=== PATIENT | female | born 1950 | race Caucasian/White ===

== ENCOUNTER → 2016-09-05 | Outpatient (CLI) | payer MEDICARE, BC | LOC: MC.RAD 10:44 | DX: Z12.31 Encounter for screening mammogram for malignant neoplasm of breast (principal) ==

== ENCOUNTER → 2017-09-13 | Outpatient (CLI) | payer MEDICARE, BC | LOC: MC.RAD 07:20 | DX: Z12.31 Encounter for screening mammogram for malignant neoplasm of breast (principal) ==

== ENCOUNTER → 2018-09-24 | Outpatient (CLI) | payer MEDICARE, BC | LOC: MC.RAD 11:15 | DX: Z12.31 Encounter for screening mammogram for malignant neoplasm of breast (principal) ==

== ENCOUNTER → 2020-09-29 | Outpatient (CLI) | payer MEDICARE, BC | LOC: MC.RAD 10:52 | DX: Z12.31 Encounter for screening mammogram for malignant neoplasm of breast (principal) ==

== ENCOUNTER 2021-09-13 08:36 | Day surgery (SDC) | payer MEDICARE, BC ==
[2021-09-13] VITALS (11 sets, daily range): BP systolic 110–151; BP diastolic 51–71; PULSE 81–96; TEMP 97.4–99.5
[~2021-09-13] VITALS: Ht 154.9 cm; Wt 72.3 kg
[2021-09-13] MEDS ORDERED: ARICEPT10 MG PO (09:49)
[2021-09-13] MEDS ORDERED: FOSAMAX 70MG TA70 MG PO (09:49)
[2021-09-13] MEDS ORDERED: PRILOSEC 20MG20 MG PO (09:50)
[2021-09-13] MEDS ORDERED: SINGULAIR 110 MG/TAB PO (09:51)
[2021-09-13] MEDS ORDERED: PROZAC 20MG20 MG PO (09:51)
[2021-09-13] MEDS ORDERED: MASON NATURAL2000 IU PO (09:52)
[2021-09-13] MEDS ORDERED: PROBIOTIC-MAJOR PO (09:53)
[2021-09-13] MEDS ORDERED: OCUVITE1 TA1 PO (09:53)
[2021-09-13] MEDS ORDERED: TESSALON P100 MG/CAP PO (09:55)
--- NOTE | 2021-09-13 12:45 | NUR ---
PT recently arrived to the floor from [place]. She is alert and oriented, although drowsy. Incisions to abd are well approximated, no drainage or redness noted. Oriented pt to her room and educated her on room service.
--- NOTE | 2021-09-13 14:31 | NUR ---
Pt was only able to eat a couple bites and then felt nauseated. Nausea medication given. Pt requested some crackers as she states she feels hungry.
--- NOTE | 2021-09-13 18:32 | NUR ---
Patient had an episode of emesis. Not due for nausea medication, nurse encouraged patient to eat slow and limit intake until can handle PO. A&Ox3. VSS. IV CDI. Denies pain and discomfort. Incision sites abdomen CDI. Call light within reach.
--- NOTE | 2021-09-13 20:46 | NUR ---
ASSESSMENT COMPLETE. PT SITTING UP IN BED. A&O. PT. STATED SHE PREVIOUSLY VOMITED AND CLEANED IT UP. SHE ALSO COMPLAINING OF PAIN IN ABDOMEN OF 7/10 AFTER VOMITING. OFFERED ZOFRAN AND NORCO WHICH WAS ACCEPTED. SEE EMAR. PT. REFUSED OTHER MEDICATIONS DUE TO NAUSEA. INT PATENT TO LEFT HAND. ABDOMEN GLUE SITES ARE CDI. CALL LIGHT IN REACH. NO FURTHER NEEDS AT THIS TIME.
[2021-09-14 04:14] VITALS: BP 131/63; PULSE 72; TEMP 98.4
[2021-09-14 07:55] VITALS: BP 134/69; PULSE 72; TEMP 99
--- NOTE | 2021-09-14 09:18 | NUR ---
Initial visit; Patient states she is doing well and thanked Ip Paralegal for introducing herself and offering God's blessings.
--- NOTE | 2021-09-14 09:42 | NUR ---
PT UP INDEPENDENT IN ROOM AND WADE. PT DENIES PAIN, INCISIONS CDI, PT HAS HAD NORCO AND ZOFRAN FOR NAUSEA. PT REPORTS FEELING BETTER.
--- NOTE | 2021-09-14 10:40 | NUR ---
ammonia refrigeration worker met with patient to complete intake and discuss discharge plan. Patient reports that she lives at home with her Jairon ([phone]) in [place]. She is fully independent with her ADL's and does not utilize any DME to assist with mobility. Patient has no home oxygen needs. PCP is Dr. Mokc and she utilizes [facility] for perscriptions with no cost difficulty. Patient reports that she does have a [facility] established listing her as her agent. She states that the hospital should have one on file, however it is not loacted in her EMR or chart. Patient is planning on returning home once medically ready. Discharge plan: Home with spouse
[2021-09-14] MEDS ORDERED: NORCO 325 MG-51 TAB PO (11:13)
[2021-09-14 11:59] VITALS: BP 126/59; PULSE 61; TEMP 98.9
--- NOTE | 2021-09-14 13:59 | NUR ---
DISCHARGE INSTRUCTIONS REVIEWED WITH PT. QUESTIONS ANSWERED. PT TAKEN OUT BY WHEEL CHAIR.
== END 2021-09-14 13:45 | disposition home or self-care (01) ==
LOC: SDCO 08:36 → SURG 12:20 → SDCO 09-14 13:45
DX: K62.3 Rectal prolapse (principal); K21.9 Gastro-esophageal reflux disease without esophagitis
CPT/HCPCS: OP; A4314; J0690; J1100; J1170; J2405; J2704; J3010; J7120

== ENCOUNTER → 2021-10-03 | Outpatient (CLI) | payer MEDICARE, BC ==
[~2021-10-03] MED LIST: ARICEPT10 MG PO; FOSAMAX 70MG TA70 MG PO; MASON NATURAL2000 IU PO; NORCO 325 MG-51 TAB PO; OCUVITE1 TA1 PO; PRILOSEC 20MG20 MG PO; PROBIOTIC-MAJOR PO; PROZAC 20MG20 MG PO; SINGULAIR 110 MG/TAB PO; TESSALON P100 MG/CAP PO
== END ==
LOC: MC.RAD 09:02
DX: Z12.31 Encounter for screening mammogram for malignant neoplasm of breast (principal)

== ENCOUNTER → 2023-01-15 | Outpatient (CLI) | payer MEDICARE, BC | LOC: MC.RAD 09:49 | DX: Z12.31 Encounter for screening mammogram for malignant neoplasm of breast (principal) ==

== ENCOUNTER → 2023-08-15 | Outpatient (CLI) | payer MEDICARE, BC | LOC: COL.RAD 14:09 | DX: G45.3 Amaurosis fugax (principal) ==

== ENCOUNTER → 2024-01-23 | Outpatient (CLI) | payer MEDICARE | LOC: MC.RAD 13:04 | DX: Z12.31 Encounter for screening mammogram for malignant neoplasm of breast (principal) ==